=== PATIENT | female | born 1980 | race Caucasian/White ===

== ENCOUNTER → 2016-10-18 | Outpatient (CLI) | payer BC ==
[~2016-10-18] VITALS: Ht 153 cm; Wt 84.8 kg
[~2016-10-18] MED LIST: COLACE 100MG C100 MG PO; FERROUS SULFAT325 M2 PO; IBUPROFEN600 MG PO; LISINOPRIL10 MG PO; NORCO 10-325 T1 EACH PO; NORCO 5-325 TA1 EACH PO
== END ==
LOC: OPSV 17:14
DX: K38.1 Appendicular concretions (principal)
CPT/HCPCS: G0463

== ENCOUNTER → 2016-12-03 | Outpatient (CLI) | payer BC | LOC: HEART 5 09:24 | DX: R07.9 Chest pain, unspecified (principal); R00.2 Palpitations; I10 Essential (primary) hypertension | CPT/HCPCS: 93306 ==

== ENCOUNTER 2017-01-04 13:05 | Outpatient (CLI) | payer BC ==
[~2017-01-04 13:05] MED LIST changes: -COLACE 100MG C100 MG PO; -FERROUS SULFAT325 M2 PO; -IBUPROFEN600 MG PO; -NORCO 10-325 T1 EACH PO
[2017-01-30] MEDS ORDERED: FERROUS SULFAT325 M2 PO (11:20)
[2017-01-30] MEDS ORDERED: COLACE 100MG C100 MG PO (11:22)
[2017-01-30] MEDS ORDERED: NORCO 10-325 T1 EACH PO (11:22)
[2017-01-30] MEDS ORDERED: IBUPROFEN600 MG PO (11:23)
== END 2017-01-04 15:43 | disposition home or self-care (01) ==
LOC: GENOP 13:05
DX: O36.8130 Decreased fetal movements, third trimester, not applicable or unspecified (principal); Z3A.33 33 weeks gestation of pregnancy
CPT/HCPCS: 59025; 81001; 82962

== ENCOUNTER 2017-01-14 15:25 | Outpatient (CLI) | payer BC ==
[2017-01-14 16:16] LABS: RED BLOOD COUNT 3.57 M/UL (4.00-5.10); WHITE BLOOD COUNT 7.5 K/UL (4.5-11.0)
[2017-01-30] MEDS ORDERED: FERROUS SULFAT325 M2 PO (11:20)
[2017-01-30] MEDS ORDERED: COLACE 100MG C100 MG PO (11:22)
[2017-01-30] MEDS ORDERED: NORCO 10-325 T1 EACH PO (11:22)
[2017-01-30] MEDS ORDERED: IBUPROFEN600 MG PO (11:23)
== END 2017-01-14 18:33 | disposition home or self-care (01) ==
LOC: GENOP 15:25
PROVIDERS: Obstetrics & Gynecology
DX: O13.3 Gestational [pregnancy-induced] hypertension without significant proteinuria, third trimester (principal); Z3A.34 34 weeks gestation of pregnancy
CPT/HCPCS: 36415; 81001; 82248; 82565; 84450; 84460; 84550; 85025; 85379; 85384; 85610; 85730; G0463

== ENCOUNTER → 2017-01-20 | Outpatient (CLI) | payer BC ==
[~2017-01-20] MED LIST changes: +COLACE 100MG C100 MG PO; +FERROUS SULFAT325 M2 PO; +IBUPROFEN600 MG PO; +NORCO 10-325 T1 EACH PO
== END ==
LOC: GENOP 12:22
DX: O42.92 Full-term premature rupture of membranes, unspecified as to length of time between rupture and onset of labor (principal); Z3A.35 35 weeks gestation of pregnancy
CPT/HCPCS: 81001; 83518; G0463